=== PATIENT | female | born 1935 | race Caucasian/White ===

== ENCOUNTER → 2016-07-26 | Outpatient (CLI) | payer OTHER ==
[~2016-07-26] MED LIST: ACETAMINOPHEN325 MG PO; AMANTADINE100 M1 PO; ARIMIDEX; ASPIR 8181 MG; ASPIR 8181 MG PO; AZILECT1 MG PO; CALCIUM500 MG PO; CARBIDOPA/LEVO1 TA1; CARBIDOPA/LEVO1 TA1 PO; CELEXA10 MG PO; CHLORTHALIDONE25 MG PO; CIPROFLOXACIN500 M1 PO; COZAAR 25 MG TA25 MG PO; FLORINEF ACETA0.1 MG PO; KLOR-CON 1010 MEQ PO; LEXAPRO5 MG PO; LIPITOR 20 MG T20 M1 PO; LOPRESSOR25 PO; MIRALAX17 GM PO; MIRAPEX1 MG PO; PROTONIX40 M1 PO; SINEMET 25/1001 TAB PO; SINEMET CR 50/21 TAB PO; SYMMETREL; VITAMIN D2400 UNIT PO; XANAX 0.25 MG0.25 MG PO
== END ==
LOC: RAD 14:04
DX: M25.552 Pain in left hip (principal)

== ENCOUNTER → 2016-10-08 | Outpatient (CLI) | payer OTHER | LOC: RAD 14:08 | DX: M25.571 Pain in right ankle and joints of right foot (principal) ==

== ENCOUNTER → 2017-01-03 | Outpatient (CLI) | payer OTHER | LOC: PUL 09:52 | DX: J84.10 Pulmonary fibrosis, unspecified (principal) ==

== ENCOUNTER 2018-06-15 18:02 | Emergency (ER) | payer OTHER ==
[~2018-06-15] VITALS: Ht 157.5 cm; Wt 52.2 kg
[2018-06-15 20:18] VITALS: BP 157/97
== END 2018-06-15 20:19 | disposition home or self-care (01) ==
LOC: ER 18:02
DX: S01.01XA Laceration without foreign body of scalp, initial encounter (principal); G20 Parkinson's disease; M81.0 Age-related osteoporosis without current pathological fracture; I11.0 Hypertensive heart disease with heart failure; I50.9 Heart failure, unspecified; M41.9 Scoliosis, unspecified; Z88.2 Allergy status to sulfonamides; Z90.710 Acquired absence of both cervix and uterus; W18.39XA Other fall on same level, initial encounter; Y92.89 Other specified places as the place of occurrence of the external cause; Y93.89 Activity, other specified; Y99.8 Other external cause status

== ENCOUNTER 2018-06-25 14:02 | Emergency (ER) | payer OTHER ==
[~2018-06-25] VITALS: Ht 157.5 cm; Wt 52.2 kg
[2018-06-25 14:38] VITALS: BP 130/60
== END 2018-06-25 14:53 | disposition home or self-care (01) ==
LOC: ER 14:02
DX: S01.01XD Laceration without foreign body of scalp, subsequent encounter (principal); G20 Parkinson's disease; M41.9 Scoliosis, unspecified; M81.0 Age-related osteoporosis without current pathological fracture; I95.1 Orthostatic hypotension; I11.0 Hypertensive heart disease with heart failure; I50.9 Heart failure, unspecified; Z90.710 Acquired absence of both cervix and uterus; Z88.2 Allergy status to sulfonamides; W18.39XD Other fall on same level, subsequent encounter

== ENCOUNTER → 2018-12-19 | Outpatient (CLI) | payer OTHER ==
--- NOTE | 2018-12-19 12:27 | 2DMMODE ---
[facility] [employer] [place] [place] [address] 2 D/M-MODE ECHOCARDIOGRAM Name: EVERARDO TOMLINSON Room #: REG [facility].#: [id number] ������������� Admission: 12/19/18 ������������� Attend Phys: Brad Darling Discharge: ��� ������������� ��� Date of : 39 Date of Service: 12/19/18 1227 �� Report #: [id number] �������� ��������������������������������������������[id number] THIS REPORT FOR: //name// APPROVED REPORT Study performed: 12/19/2018 10:52:35 EXAM: Comprehensive 2D, Doppler, and color-flow Echocardiogram Patient Location: Out-Patient Room #: Echo lab 2 Status: routine BSA: 1.51 HR: 84 bpm BP: 170/110 mmHg Rhythm: NSR Other Information Study Quality: Adequate Indications Dyspnea Hypertension/HDD 2D Dimensions RVDd: 26.02 mm IVSd: 12.81 (7-11mm) LVOT Diam: 19.63 (18-24mm) LVDd: 31.11 mm PWd: 9.57 (7-11mm) Ascending Ao: 35.41 (22-36mm) LVDs: 22.99 (25-40mm) Aortic Root: 28.99 mm Volumes Left Atrial Volume (Systole) Single Plane 4CH: 15.49 mL Single Plane 2CH: 30.86 mL LA ESV Index: 17.00 mL/m2 Aortic Valve AoV Peak Pop.: 1.22 m/s AO Peak Gr.: 5.97 mmHg LVOT Max P.85 mmHg LVOT Max V: 0.98 m/s TONY Vmax: 2.43 cm2 Mitral Valve E/A Ratio: 115.0 MV E Max Pop.: 1.15 m/s [facility] [address] [address] 2 D/M-MODE ECHOCARDIOGRAM Name: EVERARDO TOMLINSON Room #: REG [facility]#: [id number] ������������� Admission: 12/19/18 ������������� Attend Phys: Brad Darling Discharge: ��� ������������� ��� Date of : 39 Date of Service: 12/19/18 1227 �� Report #: [id number] �������� ��������������������������������������������[id number] MV A Pop.: 0.01 m/s IVRT: 249.13 ms Pulmonary Valve PV Peak Pop.: 0.82 m/s PV Peak Gr.: 2.68 mmHg Pulmonary Vein P Vein S: 0.51 m/s P Vein A: 0.43 m/s P Vein D: 0.24 m/s P Vein A Dur.: 133.8 msec P Vein S/D Ratio: 2.13 Tricuspid Valve TR Peak Pop.: 2.16 m/s TR Peak Gr.: 18.72 mmHg PA Pressure: 24.00 mmHg Left Ventricle The left ventricle is normal size. There is normal LV segmental wall motion. There is normal left ventricular wall thickness. Left ventricular systolic function is normal. The left ventricular ejection fraction is within the normal range. LVEF is 50-55%. The left ventricular diastolic function is normal. Right Ventricle The right ventricle is normal size. The right ventricular systolic function is normal. Atria The left atrium size is normal. The right atrium size is normal. Aortic Valve The aortic valve is normal in structure. Mild aortic regurgitation. There is no aortic valvular stenosis. Mitral Valve The mitral valve is normal in structure. Mild mitral regurgitation. No evidence of mitral valve stenosis. Tricuspid Valve The tricuspid valve is normal in structure. There is trace tricuspid regurgitation. Estimated PAP 24 mmHg. There is no pulmonary hypertension. Pulmonic Valve The pulmonary valve is normal in structure. There is no pulmonic [facility] [address] [place] [address] 2 D/M-MODE ECHOCARDIOGRAM Name: EVERARDO TOMLINSON Room #: REG [facility]#: [id number] ������������� Admission: 12/19/18 ������������� Attend Phys: Brad Darling Discharge: ��� ������������� ��� Date of : 39 Date of Service: 12/19/18 1227 �� Report #: [id number] �������� ��������������������������������������������[id number] valvular regurgitation. Great Vessels The aortic root is normal in size. IVC is normal in size and collapses >50% with inspiration. Pericardium There is no pericardial effusion. <Conclusion> The left ventricle is normal size. LVEF is 50-55%. The aortic valve is normal in structure. Mild aortic regurgitation. The mitral valve is normal in structure. Mild mitral regurgitation. The tricuspid valve is normal in structure. There is trace tricuspid regurgitation. Estimated PAP 24 mmHg. There is no pulmonary hypertension. The pulmonary valve is normal in structure. There is no pericardial effusion. ��������������������������������������������� <ELECTRONICALLY SIGNED> ���������������������������������������� By: Boo Robertson MD ��������������������������������������������� 12/19/18 1227 122 26 Boo Robertson MD /INF
== END ==
LOC: CAT 10:08
DX: I08.0 Rheumatic disorders of both mitral and aortic valves (principal); J98.4 Other disorders of lung; I10 Essential (primary) hypertension

== ENCOUNTER 2019-05-25 11:57 | Emergency (ER) | payer OTHER ==
[~2019-05-25] VITALS: Ht 157.5 cm; Wt 54.4 kg
[2019-05-25] MEDS ORDERED: NORCO 5-325 TA1 EAC1 PO (15:18)
[2019-05-25 15:35] VITALS: BP 115/71
== END 2019-05-25 15:36 | disposition home or self-care (01) ==
LOC: ER 11:57
DX: S22.41XA Multiple fractures of ribs, right side, initial encounter for closed fracture (principal); S40.011A Contusion of right shoulder, initial encounter; G20 Parkinson's disease; I11.0 Hypertensive heart disease with heart failure; I50.9 Heart failure, unspecified; M81.0 Age-related osteoporosis without current pathological fracture; M19.90 Unspecified osteoarthritis, unspecified site; Z90.710 Acquired absence of both cervix and uterus; Z88.2 Allergy status to sulfonamides; W01.0XXA Fall on same level from slipping, tripping and stumbling without subsequent striking against object, initial encounter; Y92.89 Other specified places as the place of occurrence of the external cause; Y93.89 Activity, other specified; Y99.8 Other external cause status

== ENCOUNTER 2020-06-08 10:37 | Emergency (ER) | payer OTHER ==
[~2020-06-08] VITALS: Ht 157.5 cm; Wt 53.1 kg
[~2020-06-08 10:37] MED LIST changes: +NORCO 5-325 TA1 EAC1 PO
[2020-06-08] MEDS ORDERED: NAPROSYN500 MG PO (13:17)
[2020-06-08 13:40] VITALS: BP 170/80
== END 2020-06-08 13:41 | disposition home or self-care (01) ==
LOC: ER 10:37
DX: S62.615A Displaced fracture of proximal phalanx of left ring finger, initial encounter for closed fracture (principal); S62.617A Displaced fracture of proximal phalanx of left little finger, initial encounter for closed fracture; I11.0 Hypertensive heart disease with heart failure; I50.9 Heart failure, unspecified; Z90.710 Acquired absence of both cervix and uterus; Z79.899 Other long term (current) drug therapy; Z88.2 Allergy status to sulfonamides; W18.39XA Other fall on same level, initial encounter; Y93.89 Activity, other specified; Y92.89 Other specified places as the place of occurrence of the external cause; Y99.8 Other external cause status

== ENCOUNTER → 2020-06-13 | Outpatient (CLI) | payer OTHER ==
[~2020-06-13] MED LIST changes: +NAPROSYN500 MG PO
== END ==
LOC: LAB 12:22
PROVIDERS: ATTEND Anesthesiology
DX: Z01.812 Encounter for preprocedural laboratory examination (principal); Z20.828 Contact with and (suspected) exposure to other viral communicable diseases

== ENCOUNTER 2020-10-19 19:51 | Emergency (ER) | payer OTHER ==
[~2020-10-19] VITALS: Ht 157.5 cm; Wt 52.2 kg
--- NOTE | ~2020-10-19 | EMS ---
[address] [address] EMS Patient Care Report Name: EVERARDO TOMLINSON Room #: DEP JOHNNY [facility]#: [id number] Admission: 10/19/20 Attend Phys: Discharge: 10/19/20 Date of : 39 Report #: [id number] THIS REPORT FOR: //name// Report Transmitted: 10/19/2020 22:18 EMS Care Summary [place], [place]/[facility] Incident [id number] @ 10/19/2020 19:28 Incident Location [address] Patient EVERARDO TOMLINSON Female, 85 Years 1935 Patient Address [address] [place] [address] Patient History Parkinson's Disease,Hyperlipidemia, Patient Allergies Sulfa, Patient Medications Unknown, Chief Complaint FALL Disposition Transported No Lights/[place] Dispatch Reason Falls Transported To [facility] Narrative M36 DISPATCHED ON A FALL. M36 ARRIVED TO FIND PT INSIDE OF INDEPENDENT LIVING APARTMENT OF [facility] WITH [place] [facility]URITY. PT STATED HEAD INJURY CHIEF COMPLAINT. PT AMBULATORY RN INFUSION ON SCENE. PT DENIED NECK AND BACK PAIN. PT STATED [address] [address] EMS Patient Care Report Name: EVERARDO TOMLINSON Room #: DEP ER Teresa.#: [id number] Admission: 10/19/20 Attend Phys: Discharge: 10/19/20 Date of : 39 Report #: [id number] "I WAS LOOKING FOR SOMETHING TO EAT IN THE KITCHEN AT ONE COUNTER THEN TURNED TO THE OTHER COUNTER AND LOST MY BALANCE." PT DENIED USE OF WALKER AT TIME OF FALL. PT DENIED LOSS OF CONCIOUSNESS. PT DENIED BEING ON BLOOD THINNERS AND ASPIRIN. PT ALERT AND ORIENTED X4. PT FOUND STANDING IN BATHROOM OF RESIDENCE PINNING HER HAIR BACK AT TIME OF ARRIVAL. PT SPOKE IN COMPLETE SENTENCES WITH NO INCREASED WORK OF BREATHING. PT LEFT UPPER FOREHEAD HAD DARK PURPLE SWELLING WITH MINOR DRIED BLOOD. BLEEDING CONTROLLED RN INFUSION. PT WALKED TO AMBULANCE [facility] BY EMS AND FIRE. PT SAT ON STRETCHER AND WAS SECURED WITH SEATBELTS. PT VS MONITORED EN ROUTE. PT REPORT GIVEN. PT STOOD AND PIVOTED TO HOSPITAL BED WITH ASSISTANCE. PT CARE AND BELONGINGS TRANSFERRED TO ER STAFF AT [facility] WITHOUT INCIDENT. M36 PLACED BACK IN SERVICE. Initial Vitals @19:41P: 102,R: 18,BP: 158/80,Pain: 3/10,GCS: 15,CO: 0,SpO2: 96,Revised Trauma: 12, @19:44P: 102,R: 20,BP: 160/82,Pain: 3/10,GCS: 15,CO: 0,SpO2: 98,Revised Trauma: 12, Assessments @19:36MENTAL:Person Oriented,Time Oriented,Event Oriented,Place Oriented,SKIN:HEENT:Head/Face: Swelling,LUNG SOUNDS:ABDOMEN:PELVIS//GI:EXTREMITIES:Left Arm: Other,PULSE:Radial: 2+ Normal,NEURO:Abnormal Gait, Impression Injury of Head Procedures @19:33ALS AssessmentResponse: UnchangedSucceeded Timeline 19:26,Call Received 19:26,Dispatch Notified 19:28,Dispatched 19:29,En Route 19:32,On Scene 19:33,At Patient 19:33,ALS Assessment,Response: UnchangedSucceeded, 19:41,BP: 158/80 M,PULSE: 102,RR: 18 R,SPO2: 96 Ox,ETCO2: ,BG: ,PAIN: 3,GCS: 15, 19:42,Depart Scene 19:44,BP: 160/82 M,PULSE: 102,RR: 20 R,SPO2: 98 Ox,ETCO2: ,BG: ,PAIN: 3,GCS: 15, 19:48,At Destination 20:00,Call Closed [facility] [address] [place] [address] EMS Patient Care Report Name: EVERARDO TOMLINSON [place] Room #: DEP [facility]#: [id number] Admission: 10/19/20 Attend Phys: Discharge: 10/19/20 Date of : 39 Report #: [id number] Disclaimer v1.1 Copyright 2020 [employer] This EMS Care Summary contains data elements from the applicable legal record (which may be displayed differently). It is designed to provide pertinent information for the following purposes: continuity of care, clinical quality, and state data reporting. The complete legal record is available to ED staff and administrators of the receiving hospital in [employer]'s Patient Tracker. All data is provided "as is."
[2020-10-19] MEDS ORDERED: CARBIDOPA-LEVO1 EAC9 PO (20:01)
[2020-10-19] MEDS ORDERED: CELEXA 10 MG TA10 M1 PO (20:01)
[2020-10-19] MEDS ORDERED: CARBIDOPA-LEVO1 EAC7 PO (20:01)
[2020-10-19] MEDS ORDERED: FAMOTIDINE40 MG PO (20:02)
[2020-10-19] MEDS ORDERED: AZELASTINE137 MCG/0. NASAL (20:02)
[2020-10-19] MEDS ORDERED: PRAMIPEXOLE D0.25 MG PO (20:03)
[2020-10-19] MEDS ORDERED: AMANTADINE100 M1 PO (20:03)
[2020-10-19] MEDS ORDERED: AMANTADINE 100100 M1 PO (20:03)
[2020-10-19 22:16] VITALS: BP 163/77
== END 2020-10-19 22:16 | disposition home or self-care (01) ==
LOC: ER 19:51
DX: S00.03XA Contusion of scalp, initial encounter (principal); I11.0 Hypertensive heart disease with heart failure; I50.9 Heart failure, unspecified; Z90.710 Acquired absence of both cervix and uterus; Z79.899 Other long term (current) drug therapy; Z88.2 Allergy status to sulfonamides; W01.0XXA Fall on same level from slipping, tripping and stumbling without subsequent striking against object, initial encounter; Y93.89 Activity, other specified; Y92.89 Other specified places as the place of occurrence of the external cause; Y99.8 Other external cause status

== ENCOUNTER 2020-11-17 08:55 | Inpatient (IN) | payer OTHER ==
[~2020-11-17] VITALS: Ht 157.5 cm; Wt 45.4 kg
[2020-11-17 08:55] VITALS: BP 204/130
[~2020-11-17 08:55] MED LIST changes: +AMANTADINE 100100 M1 PO; +AZELASTINE137 MCG/0. NASAL; +CARBIDOPA-LEVO1 EAC7 PO; +CARBIDOPA-LEVO1 EAC9 PO; +CELEXA 10 MG TA10 M1 PO; +FAMOTIDINE40 MG PO; +PRAMIPEXOLE D0.25 MG PO
[2020-11-17 10:43] LABS: ABSOLUTE NEUTROPHILS 7.6 thou/uL (1.4-8.2); BASOPHILS 0.8 % (0.0-2.0); EOSINOPHILS 1.4 % (0.0-3.0); HEMATOCRIT 36.9 % (37.0-47.0); HEMOGLOBIN 12.2 gm/dL (12.0-15.0); LYMPHOCYTES 8.3 % (24.0-44.0); MCH 30.8 pg (26.0-34.0); MCHC 32.9 g/dL (28.0-37.0); MCV 93.4 fL (80.0-100.0); MONOCYTES 9.4 % (1.0-8.0); PLATELET COUNT 234 thou/uL (150-400); POLYS 80.1 % (36.0-66.0); RBC 3.95 mil/uL (4.20-5.00); RDW 14.4 % (10.5-14.5); WBC 9.5 thou/uL (4.0-11.0)
[2020-11-17 10:50] LABS: CALCIUM 8.9 mg/dL (8.5-10.1); CREATININE 0.8 mg/dL (0.6-1.0)
[2020-11-17 10:54] LABS: POTASSIUM 5.2 mmol/L (3.5-5.1)
[2020-11-17 10:56] LABS: ALBUMIN 3.6 g/dL (3.4-5.0); TOTAL BILIRUBIN 0.5 mg/dL (0.2-1.0); TOTAL PROTEIN 7.7 g/dL (6.4-8.2)
[2020-11-17 12:25] VITALS: BP 167/86
[2020-11-17 12:30] VITALS: BP 167/86
[2020-11-17 13:41] VITALS: BP 180/100
[2020-11-17 14:50] VITALS: BP 147/78
--- NOTE | 2020-11-17 16:04 | NUR ---
ASSUMED PT CARE UPON ADMISSION TO UNIT AT 1316. PATIENT HAD AN ELEVATED BP WHEN CITALS WERE CHECKED, GAVE BP MEDS AND BP HAS SINCE DECREASED. PATIENT IS A&OX4, AND ABLE TO MAKE NEEDS KNOWN. PATIENT WITH PAIN WHEN MOVING HER LEFT ARM DUE TO CLAVICAL FRACTURE. PATIENT REPORTS USING A WALKER AT HOME. IV TO THE LEFT WRIST IS PATENT AND FLUIDS ARE INFUSING. PATIENT HAS REMAINED CONTINENT. ON ROOM AIR. REPORTING NO NUMBNESS OR TINGLING. MEDICATION REC COMPLETED IN ER, PHARMACIST UP TO UNIT TO RECONCILE MEDICATIONS WELL. FALL PRECAUTIONS ARE IN PLACE, CALL LIGHT WITHIN REACH.
[2020-11-17 19:37] VITALS: BP 143/66
--- NOTE | 2020-11-18 01:20 | NUR ---
PT ASSESSED AT START OF SHIFT. DENIES NEED FOR PAIN MED ON ASSESSMENT. LEFT CLAVICLE FRACTURE. ICE PACK PLACED FOR COMFORT. EVENING MEDS GIVEN WHOLE WITH WATER AND PT WILLIE IT WELL. LEVODOPA MED CHANGED PER PHARMACY ORDERS AND AVAILABLITY. FALL PRECAUTION IN PLACE. PT VOIDS VIA BED AKHTAR ON BEDREST AND AWAITING SLING PER ORTHO ORDERS. CALL LIGHT AT REACH AND WILL CONT TO MONITOR.
[2020-11-18 04:06] VITALS: BP 142/69
[2020-11-18 05:54] LABS: URINE BILIRUBIN NEGATIVE (Negative); URINE BLOOD NEGATIVE (Negative); URINE CLARITY CLEAR; URINE COLOR YELLOW; URINE GLUCOSE-RANDOM* NEGATIVE (Negative); URINE KETONES 1+ (Negative); URINE LEUKOCYTES-REFLEX NEGATIVE (Negative); URINE NITRITE-REFLEX NEGATIVE (Negative); URINE PROTEIN (DIPSTICK) NEGATIVE (Negative); URINE SPECIFIC GRAVITY 1.025 (1.005-1.035)
[2020-11-18 05:54] LABS: HEMATOCRIT 33.2 % (37.0-47.0); HEMOGLOBIN 11.1 gm/dL (12.0-15.0); MCH 30.9 pg (26.0-34.0); MCHC 33.3 g/dL (28.0-37.0); MCV 92.8 fL (80.0-100.0); RBC 3.57 mil/uL (4.20-5.00); RDW 14.8 % (10.5-14.5); WBC 8.6 thou/uL (4.0-11.0)
[2020-11-18 06:10] LABS: ALBUMIN 3.1 g/dL (3.4-5.0); CALCIUM 8.2 mg/dL (8.5-10.1); CREATININE 0.6 mg/dL (0.6-1.0); MAGNESIUM 1.9 mg/dL (1.8-2.4); PHOSPHORUS 2.9 mg/dL (2.5-4.9)
[2020-11-18 06:15] LABS: POTASSIUM 3.6 mmol/L (3.5-5.1)
[2020-11-18 08:05] VITALS: BP 150/82
--- NOTE | 2020-11-18 13:47 | NUR ---
PT ADMITTED RELATED TO MEDIAL CLAVICLE FX POST FALL. NO SURGICAL INTERVENTION INDICATED. PT TO HAVE A SLING. CM REVIEWED CHART AND SPOKE WITH CARE TEAM. CM MET WITH PT AND DTR SHELLIE AT BEDSIDE THIS DAY. PT APPEARED TO BE A&O X4. CM ROLE INTRODUCED. PT INDICATED SHE RESIDES AT [facility]. PT INDICATED SHE HAS A FWW, A USTEP WALKER, AND AN ELECTRIC SCOOTER THE SHE HAD RECENTLY GOTTEN FOR HOME USE. PT AND DTR INDICATED PT HAD HH IN THE PAST MAYBE WITH [facility] OR [facility]. PT INDICATED THAT SHE WOULD BE RECEPTIVE TO POST ACUTE CARE STAY IF NEEDED UPON DC. PT'S DTR INDICATED THAT THEY WERE MEETING TO DISCUSS POSSIBLE CARE NEEDS [facility] THIS AFTERNOON. THEY WERE AGREEABLE WITH CM SENDING CLINICAL INFO TO [facility] FOR REVIEW FOR POSSIBLE ADMISSION. CM FOLLOWING REGARDING DC PLANNING.
--- NOTE | 2020-11-18 14:22 | NUR ---
ASSUMED PT CARE THIS AM. PT A&OX4. PATIENT ABLE TO MAKE NEEDS KNOWN. PAIN RESPONDING WELL TO PAIN MEDS GIVEN PER EMAR. IV PATENT. MEDS GIVEN WITHOUT ISSUE. PATIENT REMAINS CONTINENT AND USING A BEDPAN WHEN NEEDED. PATIENT IS WEARING A SLING ON HER LEFT ARM. PATIENT REMAINS ON TELEMETRY. FALL PRECAUTIONS IN PLACE, CALL LIGHT IN REACH.
[2020-11-18 17:42] VITALS: BP 139/76
[2020-11-18 20:14] VITALS: BP 151/80
--- NOTE | 2020-11-19 06:11 | NUR ---
Pt. rested quietly at intervals during the night when checked on during frequent rounds. She was given a po pain med for c/o right shoulder pain (see emar) with some relief noted. Pt. is alert and oriented, but forgetful. Pt. felt her needs were not being attended too fast enough, but staff has been attending to her. She has sounded off the bed alarm a few times and not calling out for help to use the comode. Pt. instructed to use call light. Bed alarm is on.
[2020-11-19 08:05] VITALS: BP 130/72
--- NOTE | 2020-11-19 11:52 | NUR ---
CM ATTEMTPED TO VISIT WITH PT AND FAMILY AT BEDSIDE THIS AM BUT CORNER BEAD OPERATOR AND OT WERE IN WITH PT. CM SPOKE WITH PT'S DTR SHELLIE. SHE INDICATED THEY HAD ISSUE OVER NIGHT WITH NURSING AND PHARMACY AND WANTED TO SPEAK WITH PATIENT ADVOCATE AND NURISNG CLINICAL RESOURCE MANAGER. CM NOTIFIED LEI AND ALBERTO. THEY ARE TO MEET WITH PT AND FOLLOW UP WITH DTR. THEY ARE AGREEABLE TO SHORT TERM SKILLED REHAB STAY AT [facility] TOMORROW. CM FAXED REFERRAL YESTERDAY. CM CALLED [facility] IN ADMISSIONS THEY CONFIRMED RECIEPT AND THAT THEY ARE ABLE TO ACCEPT PT TOMORROW. CM FOLLOWING REGARDING DC PLANNING.
--- NOTE | 2020-11-19 16:03 | NUR ---
ASSUMED PT CARE AROUND 0700. PT ALERT X ORIENTED X 4. ON ROOM AIR. IV LEFT WRIST/ SALINE LOCKED. RT LIMB ALERT. LBM ON 11/17.PAIN OF 4-5 NOTED ON A NUMERIC SCALE AND CONTROLLED BY PAIN MEDICINE.. APPLYING ICE PACK TO CLAVICLE. ONE X PERSON X ASST TO BEDSIDE COMMODE. PT AND DAUGHTER HAD CONCERN ABOUT CARBADOPA- LOVODPA DOSAGE, RN LET PHARMACIST KNOW ABOUT IT. PT HAS A WEB OPERATIONS MANAGER IN THE ROOM. FALL PRECAUTION IN PLACE. WILL CALL APPROPRIATELY. WILL CONTINUE TO MONITOR.
[2020-11-19 17:11] VITALS: BP 166/95
[2020-11-19 20:57] VITALS: BP 127/65
--- NOTE | 2020-11-20 06:23 | NUR ---
Assumed pt care at 1900. A/OX4 with periods of forgetfulness noted. C/o left shoulder pain with movement;icepack provided and medicated with Tylenol (stay away from narcotics per dtr). Up with AX1,RW/GB. Continent of B&B.Fall precautions in place,calls approp for help. Pt has own HS Carbidopa pills in the bin,dosing corrected by pharmacy and pt/family agreeable with it now. SR on tele will continue to monitor pt.
[2020-11-20 08:10] VITALS: BP 114/71
[2020-11-20] MEDS ORDERED: MIRALAX17 GM PO (09:07)
--- NOTE | 2020-11-20 10:52 | NUR ---
ASSUMED PT CARE THIS AM. PT VSS, A&OX4. PATIENT PLEASANT AND ABLE TO MAKE NEEDS KNOWN. IV PATENT, SALINE LOCKED. REPORTS PAIN AT GOAL PAIN LEVEL, DENYING PAIN MEDICATIONS AT THIS TIME. PATIENT WEARING A SLING FOR COMFORT NEEDED. PATIENT ON ROOM AIR. PATIENT REMAINS ON TELEMETRY. PATIENT UP WITH ASSIST TO THE BATHROOM. FALL PRECAUTIONS ARE IN PLACE, CALL LIGHT WITHIN REACH. FAMILY MEMBER AT BEDSIDE.
--- NOTE | 2020-11-20 11:35 | NUR ---
CARE TEAM INDICATED THAT PT IS MEDICALLY STABLE TO DC TO SKILLED AT [facility] THIS DAY. CHART COPY MADE. ORDERS FAXED. NURSE GIVEN NUMBER FOR REPORT. [facility]ORT ARRANGED FOR 1330. CM NOTIFED PT AND DTR AT BEDSIDE. THEY ARE AWARE AND AGREEABLE. NO OTHER CM INTERVENTION INDICATED. CASE CLOSED.
== END 2020-11-20 13:35 | DRG 562 ==
LOC: ER 08:55 → EROBS 11:51 → 4W 11:51
PROVIDERS: Emergency Medicine; Nurse Practitioner; ADMIT Surgery; ATTEND Surgery
DX: S42.018A Nondisplaced fracture of sternal end of left clavicle, initial encounter for closed fracture (principal); E43 Unspecified severe protein-calorie malnutrition; E87.1 Hypo-osmolality and hyponatremia; Z68.1 Body mass index [BMI] 19.9 or less, adult; Z20.822 Contact with and (suspected) exposure to COVID-19; M81.0 Age-related osteoporosis without current pathological fracture; M19.90 Unspecified osteoarthritis, unspecified site; I50.9 Heart failure, unspecified; S49.92XA Unspecified injury of left shoulder and upper arm, initial encounter; G20 Parkinson's disease; I16.0 Hypertensive urgency; I11.0 Hypertensive heart disease with heart failure; E87.5 Hyperkalemia; Z66 Do not resuscitate; M50.30 Other cervical disc degeneration, unspecified cervical region; Z90.710 Acquired absence of both cervix and uterus; Z88.2 Allergy status to sulfonamides; Z85.3 Personal history of malignant neoplasm of breast; Z90.11 Acquired absence of right breast and nipple; Z87.891 Personal history of nicotine dependence
CPT/HCPCS: 10045